=== PATIENT | female | born 1995 | race Two or more races ===

== ENCOUNTER 2023-10-01 10:54 | Emergency (ER) | payer BC, MEDICAID ==
[~2023-10-01] VITALS: Ht 162.6 cm; Wt 93.1 kg
[2023-10-01 11:45] VITALS: PULSE 80; RESP 18; O2SAT 95
[2023-10-01] MEDS: MECLIZINE HCL 25 MG TAB PO ONE (12:02)
[2023-10-01] MEDS: SODIUM CHLORIDE 0.9% 1,000 ML IV ONE (12:02)
[2023-10-01] MEDS: SODIUM CHLORIDE 0.9% 500 ML IVB ONE (12:02)
[2023-10-01] MEDS: FUROSEMIDE 20 MG/2 ML VIAL IV ONE (12:03)
[2023-10-01] MEDS: ONDANSETRON HCL 4 MG/2 ML VIAL IV ONE (12:03)
[2023-10-01] MEDS: LORazepam 2MG/ML-1ML VIAL IV ONE (12:03)
[2023-10-01 12:04] LABS: Basophils # (auto) 0.1 10 ^3/uL (0-0.2); Lymphocytes # (auto) 1.9 10 ^3/uL (0.4-5.4); Nucleated Red Blood Cells % 0.1 %; White Blood Cell 8.7 10^3/uL (4.4-10.8)
[2023-10-01 12:11] LABS: Basophils % (auto) 0.6 % (0.0-2.0); Eosinophils # (auto) 0 10 ^3/uL (0-0.8); Eosinophils % (auto) 0.5 % (0.0-7.0); Hematocrit 40.4 % (36.0-46.0); Hemoglobin 13.1 g/dL (12.2-16.2); Lymphocytes % (auto) 21.2 % (10.0-50.0); Mean Corpuscular Hgb Conc. 32.4 g/dL (32.0-36.0); Mean Corpuscular Volume 80.3 fL (80.0-100.0); Monocytes # (auto) 0.3 10 ^3/uL (0-1.3); Monocytes % (auto) 3.9 % (0.0-12.0); Neutrophils # (auto) 6.4 10 ^3/uL (1.6-8.6); Neutrophils % (auto) 73.8 % (37.0-80.0); Red Blood Cells 5.04 10^6/uL (4.0-5.20); Red Cell Distribution Width 13.9 % (11.8-14.3)
[2023-10-01 12:25] LABS: Alanine Aminotransferase 95 U/L (7-40); Alkaline Phosphatase 103 U/L (46-116); Anion Gap 7 (5-15); Aspartate Aminotransferase 30 U/L (13-40); BUN/Creatinine Ratio 15.5 (10.0-20.0); Blood Urea Nitrogen 9 mg/dL (9-23); Calcium 9.6 mg/dL (8.5-10.1); Carbon Dioxide 25 mmol/L (20-30); Chloride 108 mmol/L (98-107); Glucose 119 mg/dL (74-106); Magnesium 1.9 mg/dL (1.6-2.6); Potassium 3.8 mmol/L (3.5-5.1); Sodium 140 mmol/L (136-145)
[2023-10-01 12:26] LABS: Albumin 4.5 g/dL (3.2-4.8); Bilirubin, Total 0.9 mg/dL (0.2-1.0); Total Protein 7.6 g/dL (5.7-8.2)
[2023-10-01 13:20] VITALS: PULSE 60; RESP 14; TEMP 97.8; O2SAT 96
[2023-10-01 14:00] LABS: Urine Bacteria FEW /hpf (None Seen); Urine Blood Negative /uL (Negative); Urine Clarity Clear (Clear); Urine Color Yellow (Yellow); Urine Mucus FEW (None Seen); Urine Protein, UAD Negative (Negative); Urine Urobilinogen Normal (Negative); Urine WBC 2 /hpf (0 - 5)
[2023-10-01 14:08] LABS: Amphetamine Screen, Urine Neg (NEGATIVE); Barbiturate Scree,Urine Neg (NEGATIVE); Benzodiazephine Screen, Urine Neg (NEGATIVE); Cocaine Screen, Urine Neg (NEGATIVE)
[2023-10-01 14:09] LABS: Cannabinoid Screen, Urine Neg (NEGATIVE); Opiate Scree,Urine Neg (NEGATIVE); Phencyclidine Screen, Urine Neg (NEGATIVE)
[2023-10-01] MEDS ORDERED: MECL25CH85 PO (15:10)
[2023-10-01] MEDS ORDERED: FURO1TAB33 PO (15:10)
[2023-10-01] MEDS ORDERED: ZOFR4T PO (15:12)
[2023-10-01 17:00] VITALS: BP 122/81; PULSE 83; RESP 16; O2SAT 96
== END 2023-10-01 17:10 | disposition home or self-care (01) ==
LOC: ER 10:54
DX: H81.13 Benign paroxysmal vertigo, bilateral (principal); R10.2 Pelvic and perineal pain; R53.1 Weakness; Z79.899 Other long term (current) drug therapy
CPT/HCPCS: 36415; 71045; 80053; 80307; 81001; 82962; 83735; 84702; 85025; 93005; 96361; 96374; 96375; 99285; J1940; J2060; J2405; J7030; J7040; J8597